=== PATIENT | male | born 1965 | race Caucasian/White ===

== ENCOUNTER 2016-12-14 14:46 | Emergency (ER) | payer MEDICAID ==
[~2016-12-14] VITALS: Ht 182.9 cm; Wt 117.9 kg
--- NOTE | 2016-12-14 14:56 | NUR ---
AA/OX4, C/O WORSENING CHRONIC BACK PAIN X2 DAYS, DENIES RECENT FALL OR INJURY. RESP EVEN AND UNLABORED, NAD NOTED. WAITING MD CRUZ.
[2016-12-14 15:22] VITALS: BP 137/81
== END 2016-12-14 15:25 | disposition home or self-care (01) ==
LOC: ER 14:47
DX: M54.5 Low back pain (principal); G89.29 Other chronic pain; B19.20 Unspecified viral hepatitis C without hepatic coma; F31.9 Bipolar disorder, unspecified; I10 Essential (primary) hypertension; J44.9 Chronic obstructive pulmonary disease, unspecified; K21.9 Gastro-esophageal reflux disease without esophagitis; Z88.6 Allergy status to analgesic agent; F17.200 Nicotine dependence, unspecified, uncomplicated
CPT/HCPCS: 99283; A4606; Z7610

== ENCOUNTER 2017-05-25 13:48 | Emergency (ER) | payer MEDICAID ==
[~2017-05-25] VITALS: Ht 180.3 cm; Wt 127.0 kg
--- NOTE | 2017-05-25 14:05 | NUR ---
PT PRESENTED TO THE ER WITH A C/O TRIP AND FALL OVER A [employer]. PT STATED THAT HE INJURED HIS RT ANKLE AND HIS CHRONIC BACK PAIN WORSENED. PT AMBULATED TO BED #12 WITH A STEADY GAIT. PT IS AWAITING EVAL BY .
[2017-05-25] MEDS ORDERED: MORPHINE SULFATE INJ 4 MG/ML DISP.SYRIN ONE (14:50)
[2017-05-25] MEDS ORDERED: ONDANSETRON 4 MG TAB.RAPDIS ONE (14:51)
[2017-05-25] MEDS ORDERED: MORPHINE SULFATE INJ 2 MG/ML DISP.SYRIN IM ONE (15:00)
[2017-05-25] MEDS ORDERED: ONDANSETRON 4 MG TAB.RAPDIS PO ONE (15:00)
--- NOTE | 2017-05-25 15:59 | NUR ---
Patient discharged to home in stable condition. Written and verbal after care instructions given. Patient verbalizes understanding of instruction AND RX. PT AMBULATED OUT WITH A STEADY GAIT. VSS.
[2017-05-25 16:01] VITALS: BP 121/75
== END 2017-05-25 16:02 | disposition home or self-care (01) ==
LOC: ER 13:49
DX: S93.401A Sprain of unspecified ligament of right ankle, initial encounter (principal); G89.29 Other chronic pain; M54.5 Low back pain; I10 Essential (primary) hypertension; G40.909 Epilepsy, unspecified, not intractable, without status epilepticus; J44.9 Chronic obstructive pulmonary disease, unspecified; K21.9 Gastro-esophageal reflux disease without esophagitis; F32.9 Major depressive disorder, single episode, unspecified; F17.200 Nicotine dependence, unspecified, uncomplicated; Z88.6 Allergy status to analgesic agent; Z86.19 Personal history of other infectious and parasitic diseases; Z60.2 Problems related to living alone; W01.0XXA Fall on same level from slipping, tripping and stumbling without subsequent striking against object, initial encounter; Y93.89 Activity, other specified; Y92.89 Other specified places as the place of occurrence of the external cause; Y99.8 Other external cause status
CPT/HCPCS: 72131-TC; 73610-TC; A4606; J2270; Q0162; Z7610